=== PATIENT | female | born 2000 | race African-American/Black ===

== ENCOUNTER 2022-04-13 10:20 | Emergency (ER) | payer OTHER ==
[~2022-04-13] VITALS: Ht 162.6 cm; Wt 81.2 kg
[2022-04-13 10:29] VITALS: BP 138/85
[2022-04-13] MEDS ORDERED: NACL 0.9% 1,000 ML IV ONE (10:45)
[2022-04-13 11:44] LABS: BASOPHILS # (AUTO) 0.1 K/uL (0.00-0.22); BASOPHILS % (AUTO) 1.2 % (0.0-2.0); EOSINOPHILS # (AUTO) 0.1 K/uL (0-0.4); EOSINOPHILS % (AUTO) 1.3 % (0.0-4.0); HEMATOCRIT 30.1 % (36-48); HEMOGLOBIN 9.7 g/dL (12.0-16.0); LYMPHOCYTES # (AUTO) 2.7 K/uL (2.5-16.5); LYMPHOCYTES % (AUTO) 39.7 % (20.5-51.1); MEAN CORPUSCULAR HEMOGLOBIN 25 pg (27-31); MEAN CORPUSCULAR HGB CONC 32 g/dL (33-37); MONOCYTES # (AUTO) 0.9 K/uL (0.8-1.0); MONOCYTES % (AUTO) 13.3 % (1.7-9.3); NEUTROPHILS % (AUTO) 44.5 % (42.2-75.2); PLATELET COUNT (AUTO) 280 K/uL (140-450); RED BLOOD CELL COUNT(AUTO) 3.86 MIL/uL (4.20-5.40); RED CELL DISTRIBUTION WIDTH 18.2 % (11.6-13.7); WHITE BLOOD COUNT (AUTO) 6.8 K/uL (4.8-10.8)
--- NOTE | 2022-04-13 12:00 | NUR ---
21/F PRESENTS TO ED WITH C/O WEAKNESS AND A NEAR SYNCOPAL EPISODE. PATIENT REPORTS YESTERDAY AFTER ARRIVING TO WORK SHE FELT IF SHE WAS GOING TO PASS OUT STATING HER VISION "WENT BLACK AND SHE HEARD BUZZING." PATIENT DENIES SIMILAR INCIDENTS IN THE PAST, STATING SHE DID NOT HAVE ANY TYPE OF FALL OR HEAD OR NECK INJURY. PATIENT REPORTS HX OF ANEMIA AND STATES SHE IS CURRENTLY ON HER MENSTRUAL PERIOD, DENIES SOB, CP, VISION CHANGES, DIZZINESS.
[2022-04-13 12:01] LABS: ALBUMIN 3.8 g/dL (3.4-5.0); ANION GAP 10.7 (8-16); CARBON DIOXIDE 26.8 mmol/L (21-32); CREATININE 0.9 mg/dL (0.6-1.3); POTASSIUM 3.5 mmol/L (3.5-5.1); TOTAL BILIRUBIN 0.3 mg/dL (0.0-1.0)
--- NOTE | 2022-04-13 12:35 | NUR ---
IV removed, catheter intact and site benign. Applied folded 4x4 gauze and tape to stop bleeding.
--- NOTE | 2022-04-13 12:37 | NUR ---
Patient discharged with v/s stable. Written and verbal after care instructions ABOUT ANEMIA AND NEAR SYNCOPE given and explained. Patient verbalized understanding. Ambulatory with steady gait. All questions addressed prior to discharge. Advised to follow up with PMD.
[2022-04-13 12:39] VITALS: BP 121/74
== END 2022-04-13 12:37 | disposition home or self-care (01) ==
LOC: MED 10:20
DX: R55 Syncope and collapse (principal)
CPT/HCPCS: 36415; 80053; 81002; 81025; 85025; 93005; 96360; 99284; J7030